=== PATIENT | male | born 1945 | race Caucasian/White ===

== ENCOUNTER 2025-04-06 18:21 | Emergency (ER) | payer MEDICARE, SELFPAY ==
[2025-04-06 18:39] VITALS: BP 130/61; PULSE 98; RESP 18; TEMP 36.7; O2SAT 97; BMI 24.8
--- NOTE | 2025-04-06 18:41 | ED_ITS ---
HPI - General Adult General Chief complaint: Extremity Injury, Lower Stated complaint: Cellulitis Right leg, DR mary ann Time Seen by Provider: 04/06/25 21:27 History of Present Illness ED Provider: Be Chong MD HPI narrative: 79-year-old male with history of remote CABG, borderline diabetes he tells me he is on no therapy for after weight loss this improved, with less than 48 hours of right lower extremity redness and warmth. No subjective fever. Never had a history of DVT or PE but the right leg was the side of the saphenous grafting. No breaks in the skin or injuries to the leg that he is aware of no numbness tingling or weakness Related Data Previous Rx's ?Medication ?Instructions ?Recorded cefadroxil 500 mg capsule 500 mg PO BID 7 days #14 cap s 04/06/25 Allergies Allergy/AdvReac Type Severity Reaction Status Date / Time No Known Allergies Allergy Ver[facility] 04/06/25 18:41 [facility] Social History Social History Advance Directives: Yes Advance Directives Information Provided: Yes Advance Directives on File: No Physical Exam ED Vital Signs: Vital Signs - 24 hr 04/06/25 18:39 04/06/25 23:15 04/06/25 23:31 Temperature 98.1 F 98.1 F Pulse Rate 98 69 69 Respiratory Rate 18 16 16 Blood Pressure 130/61 135/63 135/63 Pulse Oximetry 97 98 98 Oxygen Delivery Method Room Air Room Air Room Air BMI result Body Mass Index 24.8 Const Other: EXAM: Gen: Alert, awake, well appearing, well hydrated. Head: Atraumatic Eyes: Anicteric, Normal conjunctiva. ENT: Moist mucosa, no pallor. ? Neck: Supple. Skin: See attached photo below Respiratory: Breathing comfortably, No distress.Clear to auscultation bilaterally, symmetric chest expansion, No wheeze, rales, ronchi. Cardiovascular: Regular rate and rhythm. No murmurs or rub. Well perfused periphery, warm extremities. No edema. ? Abdominal: No FOCAL TENDERNESS. Soft, no objective distension. No palpable masses or obvious organomegaly. ?No guarding, no rebound tenderness or other peritoneal findings. : No flank tenderness. Neuro: Alert. Gross movement of all extremities intact. ? Psych: Calm. Cooperative. MSK: No grossly visible deformity. Vital signs: See flowsheet Course Course Course Narrative: This is an RME: Additional HPI, ROS, PE not included below will be deferred to primary provider. RME assessment and note performed by: Myra Reyes PA-C This is a 48-oder-fft-male, with hx of CABG on Xarelto, who presents to the ER with a complaint of RLE cellulitis. RLE swollen, red, taught. He had an ultrasound performed at [facility] this afternoon without any labs. He states that he left as he was very frustrated. Plan: Labs, will obtain ultrasound from [facility]. Medications Administered Discontinued Medications Generic Name Dose Route Start Last Admin Trade Name Freq PRN Reason Stop Dose Admin Cefazolin Sodium/Dextrose 2 gm in 50 mls @ 100 mls/hr 04/06/25 22:06 04/06/25 22:51 Ancef IV 04/06/25 22:35 Infused ONCE ONE Infusion Medical Decision Making Medical Decision Making MDM Narrative: 79-year-old male with DVT ruled out prior to arrival here at outside hospital which I reviewed. No fever, mild leukocytosis only. No constitutional symptoms or vital sign abnormality suggestive of acute severe infection. Plan for 1 time IV antibiotic dose and outpatient antibiotic continuation. Strict return precautions. Differential Diagnosis Cellulitis, venous insufficiency, less likely DVT Lab Data [facility] Lab Attestation statement: I reviewed the patient's lab results. 04/06/25 19:34 04/06/25 19:34 Labs: Lab Results 04/06/25 Range/Units 19:34 WBC 13.7 H (4.8-10.8) X10*3/uL RBC 3.39 L (4.60-5.80) X10*6/uL Hgb 10.2 L (14.0-18.0) g/dl Hct 30.1 L (42.0-52.0) % MCV 88.8 (80.0-98.0) fL MCH 30.1 (27.0-33.0) pg MCHC 33.9 (31.0-36.0) g/dl RDW 15.5 (11.0-16.0) % Plt Count 150 L (160-400) X10*3/uL MPV 10.3 (9.4-12.4) fL Immature Gran % (Auto) 0.8 H (0.0-0.4) % Neut % (Auto) 91.9 H (45-73) % Lymph % (Auto) 3.5 L (20-40) % Cannon % (Auto) 3.6 (2-11) % Eos % (Auto) 0.1 (0-4) % Baso % (Auto) 0.1 (0-2) % Lymph # (Auto) 0.5 L (1.2-4.9) X10*3/uL Cannon # (Auto) 0.5 (0.1-1.2) X10*3/uL Eos # (Auto) 0.0 (0.0-0.4) X10*3/uL Baso # (Auto) 0.0 (0.0-0.2) X10*3/uL Abs Immat Gran (auto) 0.11 H (0.00-0.03) X10*3/uL Absolute Neuts (auto) 12.6 H (2.0-8.3) x10*3/uL Absolute Nucleated RBC 0.000 (0.0-0.012) X10*3/uL Nucleated RBC % (auto) 0.0 (0.0-0.2) /100WBC Smear Tech's Comments VERIFIED Sodium 139 (135-145) mmol/L Potassium 4.7 (3.3-5.1) mmol/L Chloride 111 H (96-108) mmol/L Carbon Dioxide 22 (22-29) mmol/L Anion Gap 11 L (12-20) BUN 54 H (9-16) mg/dL Creatinine 1.99 H (0.5-1.4) mg/dL Estim Creat Clear Calc 29.1 Estimated GFR 32 Random Glucose 145 H (60-115) mg/dL Calcium 8.6 (8.4-10.2) mg/dL Total Bilirubin 0.6 (0.0-1.0) mg/dL Direct Bilirubin 0.3 (0.0-0.5) mg/dL AST 24 (5-37) U/L ALT 20 (0-40) U/L Alkaline Phosphatase 44 (39-117) U/L Total Protein 5.6 L (6.5-8.0) g/dL Albumin 3.6 (3.5-5.0) g/dL External Record Review External record reviewed: Outside ED record (See attached DVT ultrasound performed at outside hospital prior to the visit today at [facility] at approximately 15:06. This was a reviewed through [employer] access) [facility]: RESULT: US Doppler Ext Lower Venous Right US Doppler Ext Lower Venous Right Reason: Other:; Pain in limb; Clinical Question(s): Thrombus COMPARISON: None IMAGING TECHNIQUE: Ultrasound of the veins from the groin through the calf was performed using grayscale, color, and spectral Doppler ultrasound assessing for complete compressibility and normal flow characteristics. FINDINGS: Common femoral vein: Patent. No thrombosis. Femoral vein: Patent. No thrombosis. Popliteal vein: Patent. No thrombosis. Gastrocnemius veins: The visualized portions are patent without evidence of thrombosis. Peroneal veins: The visualized portions are patent without evidence of thrombosis. Posterior tibial veins: The visualized portions are patent without evidence of thrombosis. Contralateral common femoral vein: Patent. No thrombosis. OTHER FINDINGS: None. IMPRESSION: No evidence of deep venous thrombosis. WSN: [id number] Ordering Physician: Chad Kelsey I Discharge Plan Discharge Clinical Impression: Cellulitis Patient Disposition: Home, Self-Care Instructions: Cellulitis (ED) Additional Instructions: _ DISCHARGE DIAGNOSES: Uncomplicated right lower leg cellulitis HISTORY OF PRESENTATION: Redness of the leg for 2 days EMERGENCY DEPARTMENT COURSE,TESTS, TREATMENTS: While in the ED today you were monitored. You had normal vital signs no fever and normal heart rate. We were able to review the ultrasound report from earlier today at [facility] which showed no signs of blood clot in the leg. You got a single dose of intravenous antibiotics, cefazolin. Your lab work showed mildly elevated white blood cell count and no other actionable findings. Your creatinine was 1.99 t this is consistent with your recent blood tests at [facility] most recently December 19 were your creatinine was 1.94 this is consistent with your chronic kidney disease DISCHARGE MEDICATIONS: ?[We have made no changes to your regular medication regimen] we have added on an oral antibiotic to be taken twice per day to not miss any doses for the next week FOLLOW-UP: ?Call your primary or general physician soon as possible to discuss your symptoms, your ED visit and to discuss follow up plans Call your primary doctor for follow up INSTRUCTIONS ?& RETURN PRECAUTIONS: If any symptoms change first call your primary physician, if it is after-hours your primary doctors office should have a provider owner professional engineer you can speak with. If the symptoms are severe or very concerning to you then call 911 or return to the ED. If you develop worse or redness or warmth tracking up the leg after 48 full hours of antibiotics or you develop high fevers shaking chills severe pain in your leg or other symptoms that we discussed return back to the emergency department immediately Be Chong MD Emergency Physician [facility] Prescriptions: New cefadroxil 500 mg capsule 500 mg PO BID 7 Days Qty: 14 0RF Interventions: ED Discharge Assessment Last Done: 04/06/25 23:31 Discharge Date/Time: 04/06/25 23:37 Print Language: French
[2025-04-06 19:40] LABS: Basophils Percent Auto 0.1 % (0-2); Eosinophils Percent Auto 0.1 % (0-4); Hematocrit 30.1 % (42.0-52.0); Hemoglobin 10.2 g/dl (14.0-18.0); Imm Gran Abs Auto 0.11 X10*3/uL (0.00-0.03); Imm Gran Pct Auto 0.8 % (0.0-0.4); Lymphocytes Absolute Auto 0.5 X10*3/uL (1.2-4.9); Lymphocytes Percent Auto 3.5 % (20-40); MANUAL DIFF FLAG SCAN; Mean Corpuscular HGB Conc 33.9 g/dl (31.0-36.0); Mean Corpuscular Hemoglobin 30.1 pg (27.0-33.0); Mean Corpuscular Volume 88.8 fL (80.0-98.0); Mean Platelet Volume 10.3 fL (9.4-12.4); Monocytes Absolute Auto 0.5 X10*3/uL (0.1-1.2); Monocytes Percent Auto 3.6 % (2-11); Neutrophils Absolute Auto 12.6 x10*3/uL (2.0-8.3); Neutrophils Percent Auto 91.9 % (45-73); Platelet Count 150 X10*3/uL (160-400); Red Blood Count 3.39 X10*6/uL (4.60-5.80); Red Cell Distribution Width 15.5 % (11.0-16.0); SCAN SMEAR FLAG 1; White Blood Count 13.7 X10*3/uL (4.8-10.8)
[2025-04-06 19:54] LABS: Alanine Aminotransferase 20 U/L (0-40); Albumin Level 3.6 g/dL (3.5-5.0); Alkaline Phosphatase 44 U/L (39-117); Anion Gap 11 (12-20); Aspartate Amino Transferase 24 U/L (5-37); Bilirubin Direct 0.3 mg/dL (0.0-0.5); Bilirubin Total 0.6 mg/dL (0.0-1.0); Blood Urea Nitrogen 54 mg/dL (9-16); Calcium 8.6 mg/dL (8.4-10.2); Carbon Dioxide 22 mmol/L (22-29); Chloride 111 mmol/L (96-108); Creatinine Clr Calc Pharmacy 29.1; Estimated Glomerular Filt Rate 32; Glucose Random 145 mg/dL (60-115); Potassium 4.7 mmol/L (3.3-5.1); Sodium 139 mmol/L (135-145); Total Protein 5.6 g/dL (6.5-8.0)
[2025-04-06 20:01] LABS: SLIDE REVIEW VERIFIED
[2025-04-06] MEDS: ceFAZolin Sodium/Dextrose,Iso 2 GM/50 ML PIGGYBACK IV (22:19)
--- NOTE | 2025-04-06 22:51 | PC.NURSE ---
Per Obinna Stoll MD no cultures needed before to IV antibiotics administration. Pt medicated according to DEC.
[2025-04-06 23:15] VITALS: BP 135/63; PULSE 69; RESP 16; O2SAT 98
[2025-04-06 23:31] VITALS: BP 135/63; PULSE 69; RESP 16; TEMP 36.7; O2SAT 98
== END 2025-04-06 23:37 | disposition home or self-care (01) ==
PROVIDERS: Physician Assistant Medical; Emergency Provider Emergency Medicine
DX: L03.115 Cellulitis of right lower limb (principal); I25.10 Atherosclerotic heart disease of native coronary artery without angina pectoris; Z79.01 Long term (current) use of anticoagulants; Z79.899 Other long term (current) drug therapy
CPT/HCPCS: 36415; 80048; 80076; 85025; 96365; 99284; J0690